=== PATIENT | male | born 1980 | race African-American/Black ===

== ENCOUNTER 2024-11-03 13:59 | Emergency (ER) | payer SELFPAY ==
[~2024-11-03] VITALS: Ht 185.4 cm; Wt 113.0 kg
[2024-11-03 14:25] VITALS: TEMP 36.7; O2SAT 99
[2024-11-03] MEDS: BACITRACIN ZINC OINT UDPKT TOP ONE (15:15)
[2024-11-03] MEDS: TETANUS, DIPHTHERIA, PERTUSSIS VAC/PF 0.5ML (>10YR OLD) IM ONE (15:27)
[2024-11-03] MEDS: LIDOCAINE HCL 1% 20ML VIAL INFIL ONE (15:45)
[2024-11-03] MEDS ORDERED: BO1 TP (16:07)
[2024-11-03] MEDS ORDERED: AMLO5TAB88 MT (16:07)
[2024-11-03 16:14] VITALS: BP 210/124; PULSE 85; RESP 16; O2SAT 97
[2024-11-03] MEDS: CLONIDINE 0.1MG TABLET PO ONE (16:18)
== END 2024-11-03 16:23 | disposition home or self-care (01) ==
LOC: ER 14:42
DX: S21.112A Laceration without foreign body of left front wall of thorax without penetration into thoracic cavity, initial encounter (principal); I10 Essential (primary) hypertension; W26.8XXA Contact with other sharp object(s), not elsewhere classified, initial encounter; Y93.89 Activity, other specified; Y92.89 Other specified places as the place of occurrence of the external cause; Y99.8 Other external cause status
CPT/HCPCS: 90715; 12004; 90471; 99283; J2003; Z7610

== ENCOUNTER 2024-11-17 07:24 | Emergency (ER) | payer OTHER ==
[~2024-11-17] VITALS: Ht 185.4 cm; Wt 113.0 kg
[~2024-11-17 07:24] MED LIST: AMLO5TAB88 MT; BO1 TP
[2024-11-17 07:34] VITALS: BP 161/103; TEMP 36.7; O2SAT 99
[2024-11-17 07:36] VITALS: PULSE 101; RESP 16; O2SAT 95
== END 2024-11-17 11:05 | disposition left against medical advice (07) ==
LOC: ER 07:24
DX: Z48.02 Encounter for removal of sutures (principal); Z53.21 Procedure and treatment not carried out due to patient leaving prior to being seen by health care provider